=== PATIENT | male | born 1965 | race Caucasian/White ===

== ENCOUNTER 2016-12-24 19:04 | Emergency (ER) | payer OTHER ==
[~2016-12-24] VITALS: Ht 170.2 cm; Wt 76.8 kg
[2016-12-24 19:08] VITALS: BP 158/109; PULSE 50; RESP 18; TEMP 98.2; O2SAT 96
--- NOTE | 2016-12-24 19:13 | PD ---
HPI . Cough and flulike symptoms for 15 days Chief Complaint: ENT Complaint Time Seen by Provider: 19:12 Travel History International Travel<30 days: No Contact w/Intl Traveler<30days: No Traveled to known affect area: No History of Present Illness HPI 51-year-old male with history of hypertension here with complaints of cough and flulike symptoms for 15 days. Patient speaks only Italian and we had to use [employer] translation services to obtain this information. Apparently patient has been having cold and flulike symptoms for 15 days with increased coughing that is causing his chest to hurt. He's been trying Turkish herbs without any relief. Therefore he decided to come to the emergency room for further evaluation. Patient reports increased coughing that is causing the inside of his chest hurt. He denies any nausea, vomiting or diaphoresis. Reports some trouble breathing. He tells us that he has had this every year and was told that he has the flu. He denies any fever or chills. He has no rhinorrhea, sore throat or other symptoms. He does have a history of high blood pressure and went to see a doctor, however did not start the medications because he had to travel to far to pick them up. He is a smoker and smokes about 2-3 cigarettes per day. He does have a primary care provider Dr. [place]. [facility] Past Medical History Hypertension: Yes Social History Alcohol Use: Yes Tobacco Use: Yes Substance Use: No Allergies-Medications (Allergen,Severity, Reaction): Coded Allergies: No Known Allergies (Unverified , 12/24/16) Reported Meds & Prescriptions Reported Meds & Active Scripts Active Tessalon Perles (Benzonatate) 100 Mg Cap 100 Mg PO TID PRN Prednisone 50 Mg Tab 50 Mg PO DAILY Review of Systems General / Constitutional: No: Fever Eyes: No: Visual changes HENT: No: Headaches Cardiovascular: No: Chest Pain or Discomfort Respiratory: Positive: Cough, No: Shortness of Breath Gastrointestinal: No: Abdominal Pain Genitourinary: No: Dysuria Musculoskeletal: No: Pain Skin: No Rash Neurologic: No: Weakness Psychiatric: No: Depression Endocrine: No: Polydipsia Hematologic/Lymphatic: No: Easy Bruising Physical Exam Narrative GENERAL: AAO x 3, no acute distress, Well-nourished, well-developed patient. Comfortable and in no signs of distress. SKIN: Warm and dry. No visible rashes or bruising. HEAD: Normocephalic and atraumatic. EYES: No scleral icterus. No injection or drainage. Posterior pharynx is normal. TMs are normal. ENT: No nasal drainage noted. Mucous membranes pink. Airway patent. NECK: Supple, trachea midline. No JVD. CARDIOVASCULAR: Regular rate and rhythm without murmurs, gallops, or rubs. RESPIRATORY: Breath sounds equal bilaterally. No accessory muscle use. No rhonchi or rales. No wheezing. Auscultation unremarkable. GASTROINTESTINAL: Abdomen soft, non-tender, nondistended. EXTREMITIES: No cyanosis or edema. BACK: Nontender without obvious deformity. No CVA tenderness. PSYCH: AAO x 3, normal affect. Data Data Last Documented VS Vital Signs Date Time Temp Pulse Resp B/P Pulse Ox O2 Delivery O2 Flow Rate FiO2 12/24/16 19:40 18 12/24/16 19:08 98.2 50 158/109 96 Orders Influenzae A/B Antigen (12/24/16 19:41) MDM Medical Decision Making Medical Screen Exam Complete: Yes Emergency Medical Condition: Yes Differential Diagnosis Bronchitis, influenza, less likely pneumonia, Narrative Course 51-year-old male with history of hypertension here with complaints of cough and flulike symptoms for 15 days. Patient speaks only Italian and we had to use [employer] translation services to obtain this information. Apparently patient has been having cold and flulike symptoms for 15 days with increased coughing that is causing his chest to hurt. He's been trying Turkish herbs without any relief. Therefore he decided to come to the emergency room for further evaluation. Patient reports increased coughing that is causing the inside of his chest hurt. He denies any nausea, vomiting or diaphoresis. Reports some trouble breathing. He tells us that he has had this every year and was told that he has the flu. He denies any fever or chills. He has no rhinorrhea, sore throat or other symptoms. He does have a history of high blood pressure and went to see a doctor, however did not start the medications because he had to travel to far to pick them up. He is a smoker and smokes about 2-3 cigarettes per day. He does have a primary care provider Dr. [place]. Patient seen and examined. His examination is unremarkable. I will swab him for influenza, but highly doubt this will be positive. With the reports of coughing, he seems to have a bronchitis. His lungs are clear bilaterally. I do not recommend any x-ray or labs. Of note patient did asked the associate professor of pathology if we would be able to obtain blood work on him, and I advised him that it was not indicated at this time. Microbiology Date/Time Procedure Status Source Growth 12/24/16 19:50 Influenza Types A,B Antigen (NATHAN) - Final Complete Nasal Washing NEGATIVE FOR FLU A AND B ANTIGEN.... Diagnosis Primary Impression: Acute bronchitis Qualified Code: J20.9 - Acute bronchitis, unspecified organism Additional Impression: HTN (hypertension) Qualified Code: I10 - Essential hypertension Patient Instructions: Acute Bronchitis (ED), General Instructions Additional Instructions: Please return to emergency department if your symptoms return or worsen. Follow up with your primary care provider. Take medications as prescribed. Please follow-up with your primary care provider regarding your blood pressure. It is elevated and you will need to have this followed so that you can start medications. Her pressures a silent killer and complete things such as stroke. Med/Other Pt SpecificInfo: Prescription(s) given Scripts Benzonatate (Tessalon Perles)100 Mg [id number] Mg PO TID PRN (COUGH) #20 CAP Ref 0 Prov:Volodymyr Beard MD 12/24/16 Prednisone 50 Mg Tab50 Mg PO DAILY #5 TAB Prov:Volodymyr Beard MD 12/24/16 Disposition: 01 DISCHARGE HOME Condition: Stable Dorita Olivas Dec 24, 2016 19:13
[2016-12-24] MEDS ORDERED: BENZ100 PO (20:20)
[2016-12-24] MEDS ORDERED: PRED50 PO (20:20)
== END 2016-12-24 20:40 | disposition home or self-care (01) ==
LOC: PHEFT 19:04
DX: J20.9 Acute bronchitis, unspecified (principal); I10 Essential (primary) hypertension; Z72.0 Tobacco use
CPT/HCPCS: 87804; 99283